=== PATIENT | female | born 1990 | race Caucasian/White ===

== ENCOUNTER 2020-12-29 07:38 | Day surgery (SDC) | payer OTHER ==
[2020-12-24 10:23] LABS: Hematocrit 37.9 % (30.3-42.9); Hemoglobin 12.1 gm/dl (10.1-14.3); Mean Corpuscular HGB Conc 32 % (30-34); Mean Corpuscular Volume 86 fl (79-97); Platelet Count 182 K/mm3 (140-440); Red Blood Count 4.43 M/mm3 (3.65-5.03); Red Cell Distribution Width 12.2 % (13.2-15.2)
[~2020-12-29 07:38] MED LIST: ACETAMINOPHEN 500 MG TAB PO SCH; CELECOXIB 200 MG CAP PO NR; GABAPENTIN 300 MG CAP PO NR; LACTATED RINGERS 1,000 ML IV SCH; MIDAZOLAM 2 MG/2 ML INJ IV NR; SCOPOLAMINE TRANSDERMAL PATCH 72 HR TD NR
[2020-12-29] MEDS ORDERED: ONDANSETRON 4 MG/2 ML INJ IV PRN (09:37)
[2020-12-29] MEDS ORDERED: HYDROmorphone 1 MG/1 ML INJ IV PRN (09:37)
[2020-12-29] MEDS ORDERED: oxyCODONE /ACETAMINOPHEN 5-325MG TAB PO PRN (09:37)
--- NOTE | 2020-12-29 09:40 | Anesthesia Consultation ---
Anesthesia Consult and Med Hx Date of service: 12/29/20 - Airway Anesthetic Teeth Evaluation: Good, Chipped (#12) ROM Head & Neck: Adequate Mental/Hyoid Distance: Adequate Mallampati Class: Class I Intubation Access Assessment: Good - Pre-Operative Health Status ASA Pre-Surgery Classification: ASA1 Proposed Anesthetic Plan: General - Pulmonary Hx Smoking: No Hx Respiratory Symptoms: No (runny nose 1 wk ago; resolved) - Cardiovascular System Hx Hypertension: No - Central Nervous System CVA: No Hx Psychiatric Problems: Yes (anxiety/depression) - Endocrine Hx Renal Disease: No Hx Liver Disease: No Hx Insulin Dependent Diabetes: No Hx Non-Insulin Dependent Diabetes: No Hx Thyroid Disease: Yes (hx goiter s/p partial thyroidectomy; no meds) - Other Systems Hx Obesity: No - Additional Comments Anesthesia Medical History Comments: No hx anesthetic complications. Had generalized itching after waking up from thyroidectomy which resolved with benadryl. Unknown what drug may have caused this.
--- NOTE | 2020-12-29 09:41 | Anesthesia Day of Surgery ---
Anesthesia Day of Surgery - Day of Surgery Patient Examined: Yes Patient H&P Reviewed: Yes Patient is NPO: Yes
[2020-12-29] MEDS ORDERED: ROCURONIUM 50 MG/5 ML INJ IV ONE (09:42)
[2020-12-29] MEDS ORDERED: KETOROLAC 30 MG/1 ML INJ ONE (09:42)
[2020-12-29] MEDS ORDERED: LIDOCAINE MPF (2%) 20 MG/1 ML VIAL 5 ML ONE (09:42)
[2020-12-29] MEDS ORDERED: dexAMETHasone 20 MG/5 ML VIAL ONE (09:42)
[2020-12-29] MEDS ORDERED: propofoL 200 MG/20 ML VIAL IV ONE (09:43)
[2020-12-29] MEDS ORDERED: NEOSTIGMINE 10MG/10 ML INJ MDV ONE (09:49)
[2020-12-29] MEDS ORDERED: GLYCOPYRROLATE 0.4 MG/2 ML INJ ONE (09:49)
[2020-12-29] MEDS ORDERED: BUPIVACAINE/PF (0.5%) 5 MG/1 ML 30 ML VIAL INFILTRATI ONE (09:57)
[2020-12-29] MEDS ORDERED: ceFAZolin 1 GM VIAL ONE (10:56)
[2020-12-29] MEDS ORDERED: fentaNYL 100 MCG/2 ML INJ ONE (11:11)
--- NOTE | 2020-12-29 12:07 | Operative Report ---
Operative Report Operative Report: Preoperative diagnosis:Multiparity desiring permanent surgical sterilization Postoperative diagnosis:Same Procedure:Operative laparoscopic bilateral tubal ligation via fulguration Surgeon:Dr. Maribel Jose Anesthesia:GETA Complication:none EBL:Less than 100 ml IV fluids:1 Liter crystalloid Urine output:Adequate, clear Drain:None Findings:No abdominal pathology uterus tubes and ovaries normal Procedure: Patient was consented in preop holding about risks benefits possible complications as well as alternatives to the procedure. After informed consent was obtained patient was taken to the operating room. She received excellent general endotracheal anesthesia and with no complication. She was then placed in the dorsal lithotomy position, prepped and draped in a sterile fashion. A timeout was verified, a red rubber catheter was placed atraumatically. A speculum was placed in the vaginal vault, the parametria was noted to be pink with no masses lesions or nodularity. The cervix was identified, grasped with a single-tooth tenaculum, and an acorn uterine manipulator was placed atraumati venita. Attention then turned to the abdomen. An umbilical incision was made with a scalpel, taken down to the fascia which was incised sharply atraumatically. Abdominal entry was achieved with the Wang trocar under direct visualization. The abdomen was then appropriately insufflated to allow for safe passage of a trocar. Two 5 mm ports were placed laterally in the usual fashion under direct visualization. The patient was placed in steep Trendelenburg. Using an LigaSure the fallopian tubes were fulgurated bilaterally. Excellent hemostasis. At the completion of the procedure all troc hars were removed atraumatically under direct visualization. The fascia was closed with 0 Vicryl, the skin closed with Monocryl. Pressure dressings were applied at all incision sites. The uterine manipulator and speculum were removed from the cervix and the vagina respectively. The patient was extubated and taken to the recovery area in stable condition. Her family was notified of her stable condition immediately following the completion of the procedure. There were no complications. EBL less than 50 mL. All sponge needle and instrument counts were correct x2. Nakita Jose MD
--- NOTE | 2020-12-29 13:58 | Post Anesthesia Evaluation ---
- Post Anesthesia Evaluation Patient Participated: Yes Airway Patent: Yes Stable Respiratory Function: Yes Nausea/Vomiting: No Temp > 96.8F: Yes Pain Manageable: Yes Adequeate Hydration: Yes Anesthesia Complications: No
[2020-12-29 19:19] VITALS: BP 118/71
== END 2020-12-29 07:39 | disposition home or self-care (01) ==
LOC: OR 07:38
PROVIDERS: ATTEND Obstetrics & Gynecology
DX: Z30.2 Encounter for sterilization (principal); D50.9 Iron deficiency anemia, unspecified; F41.9 Anxiety disorder, unspecified; F32.9 Major depressive disorder, single episode, unspecified; K21.9 Gastro-esophageal reflux disease without esophagitis; Z79.899 Other long term (current) drug therapy; Z98.890 Other specified postprocedural states; Z20.822 Contact with and (suspected) exposure to COVID-19
CPT/HCPCS: 36415; 58670; 84703; 85027; J0690; J1100; J1815; J1885; J2405; J2704; J2710; J3010; J3490; J7120; U0003